=== PATIENT | female | born 1970 | race Caucasian/White ===

== ENCOUNTER 2023-10-31 14:34 | Outpatient (OUT) | payer BC, SELFPAY ==
--- NOTE | 2023-10-31 | XR_ITS ---
The [place] [id number] Patient Name: PHAN THOMPSON MRN: [id number] date: 1970 Sex: F Assigned Patient Location: Current Patient Location: Accession/Order Number: [id number] Exam Date: 10/31/2023 14:45 Report Date: 11/02/2023 05:44 At the request of: JAILENE JAIMES Procedure: XR ankle LT min 3V PROCEDURE: XR ankle LT min 3V, XR foot LT min 3V HISTORY: LEFT ANKLE PAIN , acute lateral ankle and foot pain COMPARISON: None. FINDINGS: BONES:Mild asymmetric narrowing of the medial aspect of the tibiotalar joint. No fracture, dislocation, bone lesion. Mild bunion formation. SOFT TISSUES:No visible soft tissue swelling. EFFUSION:None visible. OTHER: Negative. XR/XR ankle LT min 3V IMPRESSION: 1. No acute bone abnormality. 2. Mild degenerative changes. Electronically authenticated by: AKIRA JARA Date: 11/02/2023 05:44
--- NOTE | 2023-10-31 | XR_ITS ---
[facility] [place] [id number] Patient Name: PHAN THOMPSON MRN: [id number] date: 1970 Sex: F Assigned Patient Location: Current Patient Location: Accession/Order Number: [id number] Exam Date: 10/31/2023 14:45 Report Date: 11/02/2023 05:44 At the request of: JAILENE JAIMES Procedure: XR foot LT min 3V PROCEDURE: XR ankle LT min 3V, XR foot LT min 3V HISTORY: LEFT ANKLE PAIN , acute lateral ankle and foot pain COMPARISON: None. FINDINGS: BONES:Mild asymmetric narrowing of the medial aspect of the tibiotalar joint. No fracture, dislocation, bone lesion. Mild bunion formation. SOFT TISSUES:No visible soft tissue swelling. EFFUSION:None visible. OTHER: Negative. XR/XR foot LT min 3V IMPRESSION: 1. No acute bone abnormality. 2. Mild degenerative changes. Electronically authenticated by: KAIRA JARA Date: 11/02/2023 05:44
== END 2023-10-31 14:35 | disposition home or self-care (01) ==
LOC: EC 14:36
PROVIDERS: PCP Family Medicine; Visit Provider Podiatrist Foot & Ankle Surgery
DX: M79.672 Pain in left foot (principal); M25.572 Pain in left ankle and joints of left foot
CPT/HCPCS: 73610; 73630

== ENCOUNTER 2024-02-16 07:42 | Outpatient (OUT) | payer BC, SELFPAY ==
--- NOTE | 2024-02-16 07:46 | MR_ITS ---
The [address] [address] Patient Name: PHAN THOMPSON MRN: [facility]:[id number] date: 1970 Sex: F Assigned Patient Location: MRI Current Patient Location: MRI Accession/Order Number: [id number] Exam Date: 02/16/2024 08:00 Report Date: 02/16/2024 09:48 At the request of: TOM PATEL Procedure: MR lumbar spine wo con EXAMINATION: MR lumbar spine wo con HISTORY: Lumbar Radiculopathy M54.16 COMPARISON: No relevant comparison available. TECHNIQUE: A variety of imaging planes and parameters were utilized for visualization of suspected pathology. FINDINGS: For the purposes of numbering, sagittal T2 image # 8 extends from the T11 vertebral body superiorly to the S2-S3 level inferiorly. PARASPINAL AREA: Normal with no visible mass. BONES: Normal alignment of the vertebral bodies with no acute fracture, spondylolisthesis or bone edema. Mild degenerative spondylosis CORD/CAUDA EQUINA: Normal caliber, contour, and signal intensity. DISC LEVELS: 12-L1: No significant disc/facet abnormality, spinal stenosis, or foraminal stenosis. L1-L2: Disc desiccation. Right paracentral disc protrusion with no central or foraminal stenosis L2-L3: No significant disc/facet abnormality, spinal stenosis, or foraminal stenosis. L3-L4: Early degenerative disc disease is present without focal protrusion or neural impingement. L4-L5: Early degenerative disc disease is present without focal protrusion or neural impingement. L5-S1: Early degenerative disc disease is present without focal protrusion or neural impingement. MR/MR lumbar spine wo con IMPRESSION: Small right paracentral disc protrusion at L1-L2 No central or foraminal stenosis Electronically authenticated by: DAVE ARZATE Date: 02/16/2024 09:48
--- NOTE | 2024-02-16 07:46 | MR_ITS ---
[address] [address] Patient Name: PHAN THOMPSON MRN: [facility]:[id number] date: 1970 Sex: F Assigned Patient Location: MRI Current Patient Location: MRI Accession/Order Number: [id number] Exam Date: 02/16/2024 08:00 Report Date: 02/16/2024 09:52 At the request of: TOM PATEL Procedure: MR cervical spine wo con EXAMINATION: MR cervical spine wo con HISTORY: Cervical Radiculopathy M54.12 COMPARISON: No relevant comparison available. TECHNIQUE: A variety of imaging planes and parameters were utilized for visualization of suspected pathology. FINDINGS: CRANIOCERVICAL AREA: Normal foramen magnum with no Chiari malformation. PARASPINAL AREA: Normal with no visible mass. BONES: Normal alignment with no acute fracture or spondylolisthesis. No bone edema. CORD: Normal caliber, contour, and signal intensity. CERVICAL DISC LEVELS: C2-C3: Early degenerative disc disease is present without focal protrusion or neural impingement. C3-C4: 1 mm anterolisthesis of C3 on C4. Mild posterior spondylosis and right facet osteoarthropathy. No central or foraminal stenosis C4-C5: Moderate disc space and disc desiccation. Mild diffuse disc/osteophyte complex. No central or foraminal stenosis C5-C6: Disc desiccation. Mild posterior disc protrusion. No central or foraminal stenosis C6-C7: Disc desiccation. Mild posterior disc protrusion. No central or foraminal stenosis C7-T1:. No significant disc/facet abnormality, spinal stenosis, or foraminal stenosis. MR/MR cervical spine wo con IMPRESSION: Degenerative changes most significant at C4-C5. No central or foraminal stenosis. Electronically authenticated by: DAVE ARZATE Date: 02/16/2024 09:52
== END 2024-02-16 07:43 | disposition home or self-care (01) ==
LOC: MRI 07:42
PROVIDERS: PCP Family Medicine; Visit Provider Nurse Practitioner Adult Health
DX: M54.12 Radiculopathy, cervical region (principal); M54.16 Radiculopathy, lumbar region
CPT/HCPCS: 72141; 72148